=== PATIENT | male | born 1955 | race American Indian/Alaskan Native ===

== ENCOUNTER 2019-02-17 15:57 | Emergency (ER) | payer MEDICARE ==
[2019-02-17 16:53] LABS: Basophils % (Auto) 0.5 % (0.0-1.8); Eosinophils # (Auto) 0.1 K/mm3 (0.0-0.4); Eosinophils % (Auto) 1.9 % (0.0-4.3); Hematocrit 37.2 % (35.5-45.6); Hemoglobin 12.3 gm/dl (11.8-15.2); Lymphocytes # (Auto) 1.5 K/mm3 (1.2-5.4); Lymphocytes % (Auto) 23.9 % (13.4-35.0); Mean Corpuscular HGB Conc 33 % (32-34); Mean Corpuscular Volume 89 fl (84-94); Monocytes # (Auto) 0.5 K/mm3 (0.0-0.8); Monocytes % (Auto) 8.2 % (0.0-7.3); Platelet Count 213 K/mm3 (140-440); Red Blood Count 4.19 M/mm3 (3.65-5.03); Red Cell Distribution Width 13.9 % (13.2-15.2)
[2019-02-17 17:17] LABS: Albumin 3.9 g/dL (3.9-5); Calcium 8.9 mg/dL (8.4-10.2)
[2019-02-17] MEDS ORDERED: NACL 0.9% 1000 ML 1,000 ML IV ONE ×2 (17:33→19:04)
--- NOTE | 2019-02-17 17:36 | Emergency Department Report ---
HPI <CELIA MTZ III - Last Filed: 02/17/19 23:43> - HPI HPI: 63-year-old -Malagasy male presents to the emergency department from his psychiatrist's office as a 1013. The patient has a history of schizophrenia and depression. He told his psychiatrist that he is hearing voices. His family is at bedside and says that he has not been eating, drinking, taking medications for the past 1-2 weeks. Oftentimes the patient will just stare at you and not respond. He is a poor historian. He also has a past history of diabetes, ckd, hypertension, dementia. The patient's sister was able to show me some blood work showing that his last lab work from July showed a creatinine of 1.8 and a GFR of 46. <HEATHER HEWITT - Last Filed: 02/20/19 08:08> - General Chief Complaint: Psych Time Seen by Provider: 02/17/19 16:12 ED Past Medical Hx <CELIA MTZ III - Last Filed: 02/17/19 23:43> <HEATHER HEWITT Kevin - Last Filed: 02/20/19 08:08> - Medications Home Medications: Home Medications Medication Instructions Recorded Confirmed Last Taken Type amLODIPine [Norvasc] 5 tab PO QDAY 02/18/19 02/18/19 Unknown History ED Review of Systems ROS: Stated complaint: MH Other details as noted in HPI <CELIA MTZ III - Last Filed: 02/17/19 23:43> ROS: Stated complaint: MH Other details as noted in HPI Comment: Unobtainable due to pts medical conditions <HEATHER HEWITT S - Last Filed: 02/20/19 08:08> Physical Exam - Physical Exam Vital Signs: Vital Signs 02/17/19 02/17/19 17:26 19:48 Temperature 97.6 F 97.9 F Pulse Rate 92 H 95 H Respiratory 18 Rate Blood Pressure 152/72 Blood Pressure 142/73 [Right] O2 Sat by Pulse 96 95 Oximetry <CELIA MTZ III - Last Filed: 02/17/19 23:43> - Physical Exam Physical Exam: GENERAL: The patient is well-developed well-nourished. HENT: Normocephalic. Atraumatic. Patient has moist mucous membranes. EYES: Extraocular motions are intact. NECK: Supple. Trachea is midline. CHEST/LUNGS: Clear to auscultation. There is no respiratory distress noted. HEART/CARDIOVASCULAR: Regular. There is no tachycardia. There is no murmur. ABDOMEN: Abdomen is soft, nontender. Patient has normal bowel sounds. There is no abdominal distention. SKIN: Skin is warm and dry. NEURO: The patient is awake. Patient is mostly nonverbal but was heard talking and does not have any slurred speech. The patient has no focal neurologic deficits. Follows some commands. MUSCULOSKELETAL: There is no tenderness or deformity. There is no evidence of acute injury. PSYCH: Patient has a flat affect.. <HEATHER HEWITT - Last Filed: 02/20/19 08:08> ED Course Vital Signs 02/17/19 02/17/19 17:26 19:48 Temperature 97.6 F 97.9 F Pulse Rate 92 H 95 H Respiratory 18 Rate Blood Pressure 152/72 Blood Pressure 142/73 [Right] O2 Sat by Pulse 96 95 Oximetry <CELIA MTZ III - Last Filed: 02/17/19 23:43> ED Medical Decision Making - Lab Data Result diagrams: 02/17/19 16:44 02/17/19 16:44 <CELIA MTZ III - Last Filed: 02/17/19 23:43> - Lab Data Result diagrams: 02/17/19 16:44 02/17/19 16:44 - Medical Decision Making This patient presents from the psychiatrist's office for evaluation of what appears to be an exacerbation of his schizophrenia and/or depression causing him to not eat, not drinking, not take his medications and generally not take care of himself. For this reason the patient appears to meet criteria to be made a 1013. We are waiting for a urine sample for urinalysis and urine drug screen. His blood work has come back showing some renal insufficiency. The patient does have a history of chronic kidney disease with his last creatinine being 1.8 and his last GFR being about 45. Currently his creatinine is 1.9 and GFR is 36. This may represent some acute on chronic renal insufficiency but he does not have any hyperkalemia or any other electrolyte abnormalities. The patient is making urine, as he urinated on the floor, and he does not appear to need any immediate intervention such as dialysis. If the patient has a urinary tract infection, antibiotics will be started. If there is something positive on the urine drug screen, it would not change my management of this patient and he would still require psychiatric placement. Therefore, the patient appears medically cleared for psychiatric placement. - Differential Diagnosis schizophrenia, bipolar disorder, depression, schizoaffective <HEATHER HEWITT - Last Filed: 02/20/19 08:08> Critical care attestation.: If time is entered above; I have spent that time in minutes in the direct care of this critically ill patient, excluding procedure time. <ADRIANOREJINORBERTO DUGLASCELIA Rene - Last Filed: 02/17/19 23:43> Critical Care Time: No Critical care attestation.: If time is entered above; I have spent that time in minutes in the direct care of this critically ill patient, excluding procedure time. <HEATHER HEWITT - Last Filed: 02/20/19 08:08> ED Disposition Is pt being admited?: No Does the pt Need Aspirin: No Time of Disposition: 23:47 <BIBI ARDONCELIA Rene - Last Filed: 02/17/19 23:43> Is pt being admited?: No <HEATHER HEWITT - Last Filed: 02/20/19 08:08> Clinical Impression: History of schizophrenia, Decreased oral intake Depression Qualifiers: Depression Type: unspecified Qualified Code(s): F32.9 - Major depressive disorder, single episode, unspecified CKD (chronic kidney disease) Qualifiers: Chronic kidney disease stage: unspecified stage Qualified Code(s): N18.9 - Chronic kidney disease, unspecified Disposition: DC/TX-65 PSY HOSP/PSY UNIT Condition: Stable Instructions: Chronic Kidney Disease (ED), Depression (ED), Schizophrenia (ED) Additional Instructions: Patient to be discharged from the ER and 1013 rescinded so the patient can go directly to the geriatric psych floor. Upon discharge patient will be transferred directly to geropsychiatric floor. Referrals: ALFONZO LU MD [Referring] - 3-5 Days
[2019-02-18 00:04] VITALS: BP 142/75
== END 2019-02-18 00:05 ==
LOC: ED 15:57
DX: F32.9 Major depressive disorder, single episode, unspecified (principal); F20.9 Schizophrenia, unspecified; N18.9 Chronic kidney disease, unspecified; R63.0 Anorexia
CPT/HCPCS: 36415; 80053; 82962; 85025; 99284; G0480; J7030; 80320

== ENCOUNTER 2019-02-17 22:25 | Inpatient (IN) | payer MEDICARE ==
[2019-02-17] MEDS ORDERED: ATIVAN IM PRN (23:18)
[2019-02-17] MEDS ORDERED: ATIVAN PO PRN (23:20)
[2019-02-17] MEDS ORDERED: HALDOL IM PRN (23:22)
[2019-02-17] MEDS ORDERED: HALDOL PO PRN (23:25)
[2019-02-18 07:17] LABS: Basophils % (Auto) 0.7 % (0.0-1.8); Eosinophils # (Auto) 0.2 K/mm3 (0.0-0.4); Eosinophils % (Auto) 3.9 % (0.0-4.3); Hematocrit 38.7 % (35.5-45.6); Hemoglobin 13.1 gm/dl (11.8-15.2); Lymphocytes # (Auto) 2.3 K/mm3 (1.2-5.4); Lymphocytes % (Auto) 36.1 % (13.4-35.0); Mean Corpuscular HGB Conc 34 % (32-34); Mean Corpuscular Volume 89 fl (84-94); Monocytes # (Auto) 0.6 K/mm3 (0.0-0.8); Platelet Count 226 K/mm3 (140-440); Red Blood Count 4.34 M/mm3 (3.65-5.03)
[2019-02-18 07:46] LABS: Albumin 3.9 g/dL (3.9-5); Calcium 9.3 mg/dL (8.4-10.2)
[2019-02-18 08:42] LABS: Chol/HDL Ratio 4.45 %
[2019-02-18] MEDS: ABILIFY PO SCH (12:12)
[2019-02-18] MEDS: NORVASC PO SCH (16:26)
--- NOTE | 2019-02-18 17:38 | History and Physical Report ---
GP History & Physical - History of Present Illness Date of admission: 02/18/19 Date of Examination: 02/18/19 Reason for Admission: Danger to self, Impaired reality testing, Psychopathology interference, Unable to care for self Chief Complaint: I was not drinking and I was not eating. History of Present Illness: The patient is a 63-year-old single -[place] male with history of Schizophrenia, diabetes, ckd, hypertension and dementia. He was admitted to the psych unit via our ER. He presented to the emergency department from his psychiatrist's office as a 101 with c/o of hearing voices, not been eating, dri nking, taking medications for the past 1-2 weeks. Per his family, patient will just stare at you and not respond. In my interview with him, he states that he is in the hospital because he has not been eating food or drinking water. He does not know why he is not eating or drinking. He reports hearing voices but he is not able to make to make out what the voices are saying. He endorses feeling paranoid but denies SI/HI Legal Status: Voluntary Patient Problems: Current Active Problems Paranoid schizophrenia (Acute) Reaction to Hospitalization: Accepting Substance History - Substance History Drug Use: none Hx Tobacco Use: No Alcohol Use: No Past psychiatric history - Past Medical History Past Medical History: diabetes, hypertension - past Psychiatric treatment and history Psych: Depression, Schizophrenia - Social History Social history: single, lives with family (finished Grade 10 education, no legal problems, no access to guns. ) Review of Systems All systems: negative Psychiatric: hallucinations, paranoia Results - Results Labs/Vitals: Laboratory Last Values WBC 6.4 K/mm3 (4.5-11.0) 02/18/19 07:03 RBC 4.34 M/mm3 (3.65-5.03) 02/18/19 07:03 Hgb 13.1 gm/dl (11.8-15.2) 02/18/19 07:03 Hct 38.7 % (35.5-45.6) 02/18/19 07:03 MCV 89 fl (84-94) 02/18/19 07:03 MCH 30 pg (28-32) 02/18/19 07:03 MCHC 34 % (32-34) 02/18/19 07:03 RDW 14.0 % (13.2-15.2) 02/18/19 07:03 Plt Count 226 K/mm3 (140-440) 02/18/19 07:03 Lymph % (Auto) 36.1 % (13.4-35.0) H 02/18/19 07:03 [place] % (Auto) 9.0 % (0.0-7.3) H 02/18/19 07:03 Eos % (Auto) 3.9 % (0.0-4.3) 02/18/19 07:03 Baso % (Auto) 0.7 % (0.0-1.8) 02/18/19 07:03 Lymph # 2.3 K/mm3 (1.2-5.4) 02/18/19 07:03 [place] # 0.6 K/mm3 (0.0-0.8) 02/18/19 07:03 Eos # 0.2 K/mm3 (0.0-0.4) 02/18/19 07:03 Baso # 0.0 K/mm3 (0.0-0.1) 02/18/19 07:03 Seg Neutrophils % 50.3 % (40.0-70.0) 02/18/19 07:03 Seg Neutrophils # 3.2 K/mm3 (1.8-7.7) 02/18/19 07:03 Sodium 139 mmol/L (137-145) 02/18/19 07:03 Potassium 3.9 mmol/L (3.6-5.0) 02/18/19 07:03 Chloride 101.3 mmol/L (98-107) 02/18/19 07:03 Carbon Dioxide 25 mmol/L (22-30) 02/18/19 07:03 17 mmol/L 02/18/19 07:03 BUN 27 mg/dL (9-20) H 02/18/19 07:03 1.6 mg/dL (0.8-1.5) H 02/18/19 07:03 Estimated GFR 53 ml/min 02/18/19 07:03 17 % 02/18/19 07:03 Glucose 130 mg/dL (75-100) H 02/18/19 07:03 POC Glucose 142 (70-105) H 02/18/19 16:26 6.2 % (4-6) H 02/18/19 07:03 Calcium 9.3 mg/dL (8.4-10.2) 02/18/19 07:03 0.40 mg/dL (0.1-1.2) 02/18/19 07:03 AST 14 units/L (5-40) 02/18/19 07:03 ALT 12 units/L (7-56) 02/18/19 07:03 114 units/L (35-129) 02/18/19 07:03 8.1 g/dL (6.3-8.2) 02/18/19 07:03 3.9 g/dL (3.9-5) 02/18/19 07:03 0.9 % 02/18/19 07:03 Triglycerides 83 mg/dL (2-149) 02/18/19 07:03 Cholesterol 165 mg/dL (50-199) 02/18/19 07:03 114 mg/dL (50-130) 02/18/19 07:03 37 mg/dL (40-59) L 02/18/19 07:03 4.45 % 02/18/19 07:03 TSH 2.230 mlU/mL (0.270-4.200) 02/18/19 07:03 Last Vital Signs Temp 97.9 F 02/18/19 09:41 Pulse 94 H 02/18/19 16:26 Resp 16 02/18/19 09:41 BP 85/52 02/18/19 16:26 Pulse Ox 100 02/18/19 09:41 Physical Examination - Constitutional Vitals: Vital Signs Temp Pulse Resp BP Pulse Ox 97.9 F 94 H 16 85/52 100 02/18/19 09:41 02/18/19 16:26 02/18/19 09:41 02/18/19 16:26 02/18/19 09:41 Temperature -Last 24 Hours Temperature 97.9 F General appearance: Present: no acute distress, disheveled - EENT Eyes: Present: PERRL, EOM intact ENT: hearing intact, clear oral mucosa - Neck Neck: Present: supple, normal ROM - Respiratory Respiratory effort: normal Mental Status Exam - Vital signs Last Vital Signs Temp 97.9 F 02/18/19 09:41 Pulse 94 H 02/18/19 16:26 Resp 16 02/18/19 09:41 BP 85/52 02/18/19 16:26 Pulse Ox 100 02/18/19 09:41 - Exam Orientation: time, place, person Affect: flat Mood: calm Thought content: delusions, paranoia Thought Process: Intact Perceptions: auditory, hallucinations Speech: minimal response Concentration: focused Motor activity: lethargic Level of consciousness: alert Memory: Intact Interaction: cooperative Assessment and Plan - Psychiatric problem (1) Paranoid schizophrenia Current Visit: Yes Status: Acute plan to address problem: Patient will be admitted for inpatient psychiatric evaluation, medication a djustment and close monitoring The patient's behavior, mood, sleep and appetite will be closely monitored. Patient will be enrolled in individual and group therapeutic sessions and encouraged to attend. Patient will be provided with a safe and structured environment. Patient's physical health needs will be addressed by the Hospitalist. Social Assessment will be completed and the Director Of Special Events will work with patient and family to ensure a suitable and safe disposition Medication adjustment will be made as clinically indicated The patient agreed on the treatment plan, understood the risk, benefit, alternative treatment, potential consequence of no treatment, and gave informed consent. Physician Certification - Certification Statement Physician Certification Statement: This is an acknowledgement statement that RENY BRYSON JR is a 63 year old M who requires inpatient psychiatric admission for treatment which could reasonably be expected to improve the patient's condition for Schizophrenia Estimated period of time patient will need to remain in the hospital: 7 days Plan for post-hospital care: out-patient care
[2019-02-18] MEDS: ARICEPT PO SCH (21:32)
[2019-02-18] MEDS: BENADRYL PO SCH (21:32)
[2019-02-18] MEDS: REMERON PO SCH (21:32)
[2019-02-18] MEDS ORDERED: D50W (25GM) Syringe IV PRN (23:39)
[2019-02-19] MEDS: HumuLIN R SUB-Q SCH ×5 (00:55→23:42)
[2019-02-19] MEDS: NORVASC PO SCH (10:00)
[2019-02-19] MEDS: ABILIFY PO SCH (10:00)
[2019-02-19] MEDS ORDERED: D50W (25GM) Syringe IV PRN (11:14)
--- NOTE | 2019-02-19 11:16 | Consultation ---
History of Present Illness - Reason for Consult Consult date: 02/19/19 med management of DM - History of Present Illness The patient is a 63-year-old single -Italian male with history of Schizophrenia, diabetes, ckd, hypertension and dementia. He was admitted to the psych unit via our ER. He presented to the emergency department from his psychiatrist's office as a 101 with c/o of hearing voices, not been eating, drinking, taking medications for the past 1-2 weeks. Per his family, patient will just stare at you and not respond. The patient was unable to give me any history regarding his hypertension or diabetes. Patient denies any pain. Past History Past Medical History: diabetes, hypertension Social history: single, lives with family (finished Grade 10 education, no legal problems, no access to guns. ) Medications and Allergies Allergies Allergy/AdvReac Type Severity Reaction Status Date / Time No Known Allergies Allergy Unverified 02/17/19 15:58 Home Medications Medication Instructions Recorded Confirmed Last Taken Type amLODIPine [Norvasc] 5 tab PO QDAY 02/18/19 02/18/19 Unknown History Active Meds: Active Medications Amlodipine Besylate (Norvasc) 5 mg PO QDAY [facility] Last Admin: 02/19/19 10:00 Dose: 5 mg Documented by: Aripiprazole (Abilify) 15 mg PO QDAY [facility] Last Admin: 02/19/19 10:00 Dose: 15 mg Documented by: Dextrose (D50w (25gm) Syringe) 50 ml IV PRN PRN PRN Reason: Hypoglycemia Diphenhydramine HCl (Benadryl) 50 mg PO QHS [facility] Last Admin: 02/18/19 21:32 Dose: 50 mg Documented by: Donepezil HCl (Aricept) 10 mg PO QHS [facility] Last Admin: 02/18/19 21:32 Dose: 10 mg Documented by: Haloperidol (Haldol) 5 mg PO Q6H PRN PRN Reason: Agitation Haloperidol Lactate (Haldol) 5 mg IM Q6H PRN PRN Reason: Agitation Insulin Glargine (Lantus) 10 units SUB-Q QHS [facility] Insulin Human Regular (Humulin R) 0 units SUB-Q Q6HR [facility]; Protocol Last Admin: 02/19/19 07:01 Dose: Not Given Documented by: Lorazepam (Ativan) 2 mg IM Q6H PRN PRN Reason: Agitation Lorazepam (Ativan) 2 mg PO Q6H PRN PRN Reason: Agitation Mirtazapine (Remeron) 30 mg PO QHS [facility] Last Admin: 02/18/19 21:32 Dose: 30 mg Documented by: Review of Systems ROS unobtainable: due to mental status Exam - Constitutional Vitals: Temp Pulse Resp BP Pulse Ox 98.7 F 90 18 100/64 97 02/19/19 07:36 02/19/19 10:00 02/18/19 22:00 02/19/19 10:00 02/19/19 07:36 General appearance: Present: no acute distress, well-nourished - EENT Eyes: Present: PERRL ENT: hearing intact, clear oral mucosa - Neck Neck: Present: supple, normal ROM - Respiratory Respiratory effort: normal Respiratory: bilateral: CTA - Cardiovascular Heart Sounds: Present: S1 & S2. Absent: rub, click - Extremities Extremities: pulses symmetrical, No edema Peripheral Pulses: within normal limits - Abdominal General gastrointestinal: Present: soft, non-tender, non-distended, normal bowel sounds Male genitourinary: Present: normal - Integumentary Integumentary: Present: clear, warm, dry - Musculoskeletal Musculoskeletal: gait normal, strength equal bilaterally - Psychiatric Psychiatric: appropriate mood/affect, intact judgment & insight - Neurologic Neurologic: CNII-XII intact, moves all extremities Results - Labs CBC & Chem 7: 02/18/19 07:03 02/18/19 07:03 Labs: Abnormal lab results 02/18/19 02/18/19 02/18/19 Range/Units 11:21 16:26 19:37 POC Glucose 154 H 142 H 234 H (70-105) 02/19/19 02/19/19 Range/Units 06:43 07:43 POC Glucose 63 L 112 H (70-105) Assessment and Plan Schizophrenia. Per psychiatric team. Continue Abilify Diabetes mellitus type 2. Continue Accu-Cheks and changed to every before meals daily at bedtime and sliding scale insulin. CKD. We do not know baseline creatinine but appears to be stable. Hypertension. Continue antihypertensive medications--Norvasc Alzheimer's dementia. Continue Aricept. Supportive care.
--- NOTE | 2019-02-19 21:18 | Progress Note ---
Subjective Date of service: 02/19/19 Principal diagnosis: Paranoid Schizophrenia Subjective Comment: Patient is withdrawn, he reports hearing voices but he is not able to make to make out what the voices are saying. He endorses feeling paranoid but denies SI/HI. He is compliant with meds and denies side effects. Objective - Criteria for Continued Treatment Criteria for Continued Treatment: Improving Level of Functioning, Stablizing Level of Functioning, Improving Emotional/Socia - Mental Status Mental Status: Alert - Objective Observation Participation Level: Minimal Assessment and Plan - Patient Problems (1) Paranoid schizophrenia Current Visit: Yes Status: Acute Plan to address problem: Patient will be admitted for inpatient psychiatric evaluation, medication adjustment and close monitoring The patient's behavior, mood, sleep and appetite will be closely monitored. Patient will be enrolled in individual and group therapeutic sessions and encouraged to attend. Patient will be provided with a safe and structured environment. Patient's physical health needs will be addressed by the Hospitalist. Social Assessment will be completed and the Dishcloth Folder will work with patient and family to ensure a suitable and safe disposition Medication adjustment will be made as clinically indicated. Will increase Abilify to 20mg qd The patient agreed on the treatment plan, understood the risk, benefit, alternative treatment, potential consequence of no treatment, and gave informed consent.
[2019-02-19] MEDS: REMERON PO SCH (21:27)
[2019-02-19] MEDS: ARICEPT PO SCH (21:28)
[2019-02-19] MEDS: BENADRYL PO SCH (21:28)
[2019-02-19] MEDS: LANTUS SUB-Q SCH (23:26)
[2019-02-20] MEDS: HumuLIN R SUB-Q SCH ×4 (07:30→23:31)
[2019-02-20] MEDS: NORVASC PO SCH (11:00)
[2019-02-20] MEDS: ABILIFY PO SCH (11:00)
[2019-02-20] MEDS: REMERON PO SCH (21:25)
[2019-02-20] MEDS: BENADRYL PO SCH (21:25)
[2019-02-20] MEDS: ARICEPT PO SCH (21:26)
[2019-02-20] MEDS: LANTUS SUB-Q SCH (23:14)
[2019-02-21] MEDS: HumuLIN R SUB-Q SCH ×4 (10:12→22:05)
[2019-02-21] MEDS: NORVASC PO SCH (11:28)
[2019-02-21] MEDS: ABILIFY PO SCH (11:29)
--- NOTE | 2019-02-21 20:40 | Progress Note ---
Subjective Date of service: 02/20/19 Principal diagnosis: Paranoid Schizophrenia Subjective Comment: Patient is withdrawn, he continues to experience distressing auditory hallucinations. He endorses feeling paranoid but denies SI/HI. He is compliant with meds and denies side effects. Objective - Criteria for Continued Treatment Criteria for Continued Treatment: Improving Level of Functioning, Reducing Isolative Behaviors, Improving Emotional/Socia - Mental Status Mental Status: Alert - Objective Observation Participation Level: Minimal Assessment and Plan - Patient Problems (1) Paranoid schizophrenia Current Visit: Yes Status: Acute Plan to address problem: Patient will be admitted for inpatient psychiatric evaluation, medication adjustment and close monitoring The patient's behavior, mood, sleep and appetite will be closely monitored. Patient will be enrolled in individual and group therapeutic sessions and encouraged to attend. Patient will be provided with a safe and structured environment. Patient's physical health needs will be addressed by the Hospitalist. Social Assessment will be completed and the Ceramic Tiler will work with patient and family to ensure a suitable and safe disposition Medication adjustment will be made as clinically indicated. Will continue Abilify 20mg qd The patient agreed on the treatment plan, understood the risk, benefit, alternative treatment, potential consequence of no treatment, and gave informed consent.
--- NOTE | 2019-02-21 20:43 | Progress Note ---
Subjective Date of service: 02/21/19 Principal diagnosis: Paranoid Schizophrenia Subjective Comment: Patient appears depressed and withdrawn. He is not eating or drinking adequately. He has auditory hallucinations. He endorses feeling paranoid but denies SI/HI. He is compliant with meds and denies side effects. Objective - Criteria for Continued Treatment Criteria for Continued Treatment: Reducing Isolative Behaviors, Stablizing Level of Functioning, Improving Emotional/Socia - Mental Status Mental Status: Alert - Objective Observation Participation Level: Minimal Assessment and Plan - Patient Problems (1) Paranoid schizophrenia Current Visit: Yes Status: Acute Plan to address problem: Patient will be admitted for inpatient psychiatric evaluation, medication adjustment and close monitoring The patient's behavior, mood, sleep and appetite will be closely monitored. Patient will be enrolled in individual and group therapeutic sessions and encouraged to attend. Patient will be provided with a safe and structured environment. Patient's physical health needs will be addressed by the Hospitalist. Social Assessment will be completed and the Machinist Apprentice will work with patient and family to ensure a suitable and safe disposition Medication adjustment will be made as clinically indicated. Will continue Abilify 20mg qd Will add Citalopram 20mg qd for depression The patient agreed on the treatment plan, understood the risk, benefit, alternative treatment, potential consequence of no treatment, and gave informed consent.
[2019-02-21] MEDS: REMERON PO SCH (22:04)
[2019-02-21] MEDS: ARICEPT PO SCH (22:04)
[2019-02-21] MEDS: BENADRYL PO SCH (22:04)
[2019-02-21] MEDS: LANTUS SUB-Q SCH (22:30)
[2019-02-22] MEDS: HumuLIN R SUB-Q SCH ×4 (07:22→21:25)
--- NOTE | 2019-02-22 08:30 | Progress Note ---
Subjective Date of service: 02/22/19 Principal diagnosis: Paranoid Schizophrenia Subjective Comment: Patient isolates, he is sluggish, withdrawn, not eating or drinking well. He reports feeling depressed. He has auditory hallucinations. He endorses feeling paranoid but denies SI/HI. He is compliant with meds and denies side effects. Objective - Criteria for Continued Treatment Criteria for Continued Treatment: Improving Level of Functioning, Reducing Isolative Behaviors, Stablizing Level of Functioning, Improving Emotional/Socia - Mental Status Mental Status: Alert - Objective Observation Participation Level: Minimal Assessment and Plan - Patient Problems (1) Paranoid schizophrenia Current Visit: Yes Status: Acute Plan to address problem: Patient will be admitted for inpatient psychiatric evaluation, medication adjustment and close monitoring The patient's behavior, mood, sleep and appetite will be closely monitored. Patient will be enrolled in individual and group therapeutic sessions and encouraged to attend. Patient will be provided with a safe and structured environment. Patient's physical health needs will be addressed by the Hospitalist. Social Assessment will be completed and the Medical Transcription Editor will work with patient and family to ensure a suitable and safe disposition Medication adjustment will be made as clinically indicated. Will continue Abilify 20mg qd (increased 02/20) Will continue Citalopram 20mg qd for depression (started 02/21) The patient agreed on the treatment plan, understood the risk, benefit, alternative treatment, potential consequence of no treatment, and gave informed consent.
[2019-02-22] MEDS: ABILIFY PO SCH (10:15)
[2019-02-22] MEDS: NORVASC PO SCH (10:16)
[2019-02-22] MEDS: celeXA PO SCH (10:16)
[2019-02-22] MEDS: ARICEPT PO SCH (21:24)
[2019-02-22] MEDS: REMERON PO SCH (21:25)
[2019-02-22] MEDS: BENADRYL PO SCH (21:25)
[2019-02-22] MEDS: LANTUS SUB-Q SCH (21:35)
--- NOTE | 2019-02-23 08:26 | Progress Note ---
Subjective Date of service: 02/23/19 Principal diagnosis: Paranoid Schizophrenia Subjective Comment: No significant improvement. He isolates, he is sluggish and withdrawn but his appetite is improving. He endorses feeling depressed. He has auditory hallucinations. He endorses feeling paranoid but denies SI/HI. He is compliant with meds and denies side effects. Objective - Criteria for Continued Treatment Criteria for Continued Treatment: Improving Level of Functioning, Stablizing Level of Functioning, Improving Emotional/Socia - Mental Status Mental Status: Alert - Objective Observation Participation Level: Minimal Assessment and Plan - Patient Problems (1) Paranoid schizophrenia Current Visit: Yes Status: Acute Plan to address problem: Patient will be admitted for inpatient psychiatric evaluation, medication adjustment and close monitoring The patient's behavior, mood, sleep and appetite will be closely monitored. Patient will be enrolled in individual and group therapeutic sessions and encouraged to attend. Patient will be provided with a safe and structured environment. Patient's physical health needs will be addressed by the Hospitalist. Social Assessment will be completed and the Wrapper Hand will work with patient and family to ensure a suitable and safe disposition Medication adjustment will be made as clinically indicated. Will continue Abilify 20mg qd (increased 02/20) Will continue Citalopram 20mg qd for depression (started 02/21) The patient agreed on the treatment plan, understood the risk, benefit, alternative treatment, potential consequence of no treatment, and gave informed consent.
[2019-02-23] MEDS: ABILIFY PO SCH (08:59)
[2019-02-23] MEDS: celeXA PO SCH (09:06)
[2019-02-23] MEDS: NORVASC PO SCH (09:07)
[2019-02-23] MEDS: HumuLIN R SUB-Q SCH ×4 (09:09→21:45)
[2019-02-23] MEDS: REMERON PO SCH (21:45)
[2019-02-23] MEDS: ARICEPT PO SCH (21:45)
[2019-02-23] MEDS: BENADRYL PO SCH (21:45)
[2019-02-23] MEDS: LANTUS SUB-Q SCH (21:46)
[2019-02-24] MEDS: celeXA PO SCH (09:20)
[2019-02-24] MEDS: NORVASC PO SCH (09:20)
[2019-02-24] MEDS: ABILIFY PO SCH (09:20)
[2019-02-24] MEDS: HumuLIN R SUB-Q SCH ×3 (09:21→21:20)
--- NOTE | 2019-02-24 16:51 | Progress Note ---
Subjective Date of service: 02/24/19 Principal diagnosis: Paranoid Schizophrenia Subjective Comment: Patient reports slight improvement in his mood but he continues to be withdrawn, not interacting with others and very slow. Appetite is improved. He endorses feeling depressed. He has auditory hallucinations. He endorses feeling paranoid but denies SI/HI. He is compliant with meds and denies side effects. Objective - Criteria for Continued Treatment Criteria for Continued Treatment: Improving Level of Functioning, Reducing Isolative Behaviors, Stablizing Level of Functioning, Improving Emotional/Socia - Mental Status Mental Status: Alert - Objective Observation Participation Level: Minimal Assessment and Plan - Patient Problems (1) Paranoid schizophrenia Current Visit: Yes Status: Acute Plan to address problem: Patient will be admitted for inpatient psychiatric evaluation, medication adjustment and close monitoring The patient's behavior, mood, sleep and appetite will be closely monitored. Patient will be enrolled in individual and group therapeutic sessions and encouraged to attend. Patient will be provided with a safe and structured environment. Patient's physical health needs will be addressed by the Hospitalist. Social Assessment will be completed and the Pick And Shovel Worker will work with patient and family to ensure a suitable and safe disposition Medication adjustment will be made as clinically indicated. Will continue Abilify 20mg qd (increased 02/20) Will add Abilify 5mg q2pm from tomorrow Will continue Citalopram 20mg qd for depression (started 02/21) The patient agreed on the treatment plan, understood the risk, benefit, alternative treatment, potential consequence of no treatment, and gave informed consent.
[2019-02-24] MEDS: REMERON PO SCH (21:20)
[2019-02-24] MEDS: ARICEPT PO SCH (21:21)
[2019-02-24] MEDS: BENADRYL PO SCH (21:21)
[2019-02-24] MEDS: LANTUS SUB-Q SCH (22:47)
[2019-02-25] MEDS: HumuLIN R SUB-Q SCH ×5 (03:46→23:04)
[2019-02-25] MEDS: ABILIFY PO SCH ×2 (09:30→22:59)
[2019-02-25] MEDS: NORVASC PO SCH (09:30)
[2019-02-25] MEDS: celeXA PO SCH (09:30)
--- NOTE | 2019-02-25 09:43 | Progress Note ---
Subjective Date of service: 02/25/19 Principal diagnosis: Paranoid Schizophrenia Subjective Comment: Patient is making slow progress, reads the Newspaper which he usually enjoys doing and he is now attending groups. Appetite is improved. He endorses feeling depressed and still experiencing distressing auditory hallucinations. He endorses feeling paranoid but denies SI/HI. He is compliant with meds and denies side effects. Objective - Criteria for Continued Treatment Criteria for Continued Treatment: Improving Level of Functioning, Stablizing Level of Functioning, Improving Emotional/Socia - Mental Status Mental Status: Alert - Objective Observation Participation Level: Moderate Assessment and Plan - Patient Problems (1) Paranoid schizophrenia Current Visit: Yes Status: Acute Plan to address problem: Patient will be admitted for inpatient psychiatric evaluation, medication adjustment and close monitoring The patient's behavior, mood, sleep and appetite will be closely monitored. Patient will be enrolled in individual and group therapeutic sessions and encouraged to attend. Patient will be provided with a safe and structured environment. Patient's physical health needs will be addressed by the Hospitalist. Social Assessment will be completed and the Senior Care Provider will work with patient and family to ensure a suitable and safe disposition Medication adjustment will be made as clinically indicated. Will continue Abilify 20mg qd (increased 02/20) Will add Abilify 5mg q2pm from today Will continue Citalopram 20mg qd for depression (started 02/21) The patient agreed on the treatment plan, understood the risk, benefit, alternative treatment, potential consequence of no treatment, and gave informed consent.
[2019-02-25] MEDS: REMERON PO SCH (21:28)
[2019-02-25] MEDS: BENADRYL PO SCH (21:29)
[2019-02-25] MEDS: ARICEPT PO SCH (21:29)
[2019-02-25] MEDS: LANTUS SUB-Q SCH (21:30)
[2019-02-26] MEDS: HumuLIN R SUB-Q SCH ×4 (09:03→22:00)
[2019-02-26] MEDS: celeXA PO SCH (09:47)
[2019-02-26] MEDS: ABILIFY PO SCH ×2 (09:47→18:16)
[2019-02-26] MEDS: NORVASC PO SCH (09:47)
--- NOTE | 2019-02-26 13:22 | Progress Note ---
Subjective Date of service: 02/26/19 Principal diagnosis: Paranoid Schizophrenia Subjective Comment: Patient is sitting by himself in the dayroom. He is staring at the food in front of him, has not touched it for several minutes. He endorses feeling depressed and still experiencing distressing auditory hallucinations. He endorses feeling paranoid but denies SI/HI. He is compliant with meds and denies side effects. Objective - Criteria for Continued Treatment Criteria for Continued Treatment: Improving Level of Functioning, Reducing Isolative Behaviors, Stablizing Level of Functioning, Improving Emotional/Socia - Mental Status Mental Status: Alert - Objective Observation Participation Level: Minimal Assessment and Plan - Patient Problems (1) Paranoid schizophrenia Current Visit: Yes Status: Acute Plan to address problem: Patient will be admitted for inpatient psychiatric evaluation, medication adjustment and close monitoring The patient's behavior, mood, sleep and appetite will be closely monitored. Patient will be enrolled in individual and group therapeutic sessions and encouraged to attend. Patient will be provided with a safe and structured environment. Patient's physical health needs will be addressed by the Hospitalist. Social Assessment will be completed and the Denier Control Operator will work with patient and family to ensure a suitable and safe disposition Medication adjustment will be made as clinically indicated. Will continue Abilify 20mg qd (increased 02/20) Will continue Abilify 5mg q2pm (added 02/25) Will continue Citalopram 20mg qd for depression (started 02/21) The patient agreed on the treatment plan, understood the risk, benefit, alternative treatment, potential consequence of no treatment, and gave informed consent.
[2019-02-26] MEDS: LANTUS SUB-Q SCH (21:22)
[2019-02-26] MEDS: REMERON PO SCH (21:29)
[2019-02-26] MEDS: BENADRYL PO SCH (21:29)
[2019-02-26] MEDS: ARICEPT PO SCH (21:29)
--- NOTE | 2019-02-27 09:11 | Progress Note ---
Subjective Date of service: 02/27/19 Principal diagnosis: Paranoid Schizophrenia Subjective Comment: Patient endorses feeling depressed and still experiencing distressing auditory hallucinations. He endorses feeling paranoid but denies SI/HI. He is compliant with meds and denies side effects. Objective - Criteria for Continued Treatment Criteria for Continued Treatment: Improving Level of Functioning, Reducing Isolative Behaviors - Mental Status Mental Status: Alert - Objective Observation Participation Level: Full Assessment and Plan - Patient Problems (1) Paranoid schizophrenia Current Visit: Yes Status: Acute Plan to address problem: Patient will be admitted for inpatient psychiatric evaluation, medication adjustment and close monitoring The patient's behavior, mood, sleep and appetite will be closely monitored. Patient will be enrolled in individual and group therapeutic sessions and encouraged to attend. Patient will be provided with a safe and structured environment. Patient's physical health needs will be addressed by the Hospitalist. Social Assessment will be completed and the Strategy Intern will work with patient and family to ensure a suitable and safe disposition Medication adjustment will be made as clinically indicated. Will continue Abilify 20mg qd (increased 02/20) Will continue Abilify 5mg q2pm (added 02/25) Will continue Citalopram 20mg qd for depression (started 02/21) The patient agreed on the treatment plan, understood the risk, benefit, alternative treatment, potential consequence of no treatment, and gave informed consent.
[2019-02-27] MEDS: HumuLIN R SUB-Q SCH ×4 (10:07→22:00)
[2019-02-27] MEDS: celeXA PO SCH (10:08)
[2019-02-27] MEDS: NORVASC PO SCH (10:09)
[2019-02-27] MEDS: ABILIFY PO SCH ×2 (10:11→17:10)
[2019-02-27] MEDS: REMERON PO SCH (21:19)
[2019-02-27] MEDS: BENADRYL PO SCH (21:19)
[2019-02-27] MEDS: ARICEPT PO SCH (21:19)
[2019-02-27] MEDS: LANTUS SUB-Q SCH (22:57)
--- NOTE | 2019-02-28 07:43 | Progress Note ---
Subjective Date of service: 02/28/19 Principal diagnosis: Paranoid Schizophrenia Subjective Comment: Patient is severely depressed, withdrawn, not eating, very psychomotorly retarded, and continues to endorse distressing auditory hallucinations. He endorses feeling paranoid but denies SI/HI. He is compliant with meds and denies side effects. He requires a lot of prompting to perform personal hygiene. If left alone, he would not eat and would not take care of his personal hygiene. Objective - Criteria for Continued Treatment Criteria for Continued Treatment: Improving Level of Functioning, Reducing Isolative Behaviors, Stablizing Level of Functioning, Improving Emotional/Socia - Mental Status Mental Status: Alert - Objective Observation Participation Level: Minimal Assessment and Plan - Patient Problems (1) Paranoid schizophrenia Current Visit: Yes Status: Acute Plan to address problem: Patient will be admitted for inpatient psychiatric evaluation, medication adjustment and close monitoring The patient's behavior, mood, sleep and appetite will be closely monitored. Patient will be enrolled in individual and group therapeutic sessions and encouraged to attend. Patient will be provided with a safe and structured environment. Patient's physical health needs will be addressed by the Hospitalist. Social Assessment will be completed and the Tinner Automatic will work with pa tient and family to ensure a suitable and safe disposition Medication adjustment will be made as clinically indicated. Will continue Abilify 20mg qd (increased 02/20) Will continue Abilify 5mg q2pm (added 02/25) Will discontinue Citalopram and start Cymbalta 60mg qd for depression. Continue Remeron 30mg qhs (home med) The patient agreed on the treatment plan, understood the risk, benefit, alternative treatment, potential consequence of no treatment, and gave informed consent.
[2019-02-28] MEDS: HumuLIN R SUB-Q SCH ×4 (07:48→21:44)
[2019-02-28] MEDS: CYMBALTA PO SCH (10:56)
[2019-02-28] MEDS: ABILIFY PO SCH ×2 (10:57→17:07)
[2019-02-28] MEDS: NORVASC PO SCH (10:58)
[2019-02-28] MEDS: BENADRYL PO SCH (21:16)
[2019-02-28] MEDS: ARICEPT PO SCH (21:16)
[2019-02-28] MEDS: REMERON PO SCH (21:16)
[2019-02-28] MEDS: LANTUS SUB-Q SCH (21:45)
[2019-03-01] MEDS: HumuLIN R SUB-Q SCH ×4 (07:00→21:05)
[2019-03-01] MEDS: ABILIFY PO SCH ×2 (10:06→17:01)
[2019-03-01] MEDS: NORVASC PO SCH (10:07)
[2019-03-01] MEDS: CYMBALTA PO SCH (10:07)
--- NOTE | 2019-03-01 10:22 | Progress Note ---
Subjective Date of service: 03/01/19 Principal diagnosis: Paranoid Schizophrenia Subjective Comment: Patient is severely depressed, withdrawn, not eating well, refusing to shower, very psychomotorly retarded, and continues to endorse distressing auditory hallucinations. He endorses feeling paranoid but denies SI/HI. He is compliant with meds and denies side effects. He requires a lot of prompting to perform personal hygiene. If left alone, he would not eat and would not take care of his personal hygiene. Objective - Criteria for Continued Treatment Criteria for Continued Treatment: Improving Level of Functioning, Reducing Isolative Behaviors, Stablizing Level of Functioning, Improving Emotional/Socia - Mental Status Mental Status: Alert - Objective Observation Participation Level: Minimal Assessment and Plan - Patient Problems (1) Paranoid schizophrenia Current Visit: Yes Status: Acute Plan to address problem: Patient will be admitted for inpatient psychiatric evaluation, medication adjustment and close monitoring The patient's behavior, mood, sleep and appetite will be closely monitored. Patient will be enrolled in individual and group therapeutic sessions and encouraged to attend. Patient will be provided with a safe and structured environment. Patient's physical health needs will be addressed by the Hospitalist. Social Assessment will be completed and the Edge Sawyer will work with patient and family to ensure a suitable and safe disposition Medication adjustment will be made as clinically indicated. Will continue Abilify 20mg qd (increased 02/20) Will continue Abilify 5mg q2pm (added 02/25) Citalopram discontinued 02/28 Cymbalta 60mg qd for depression (02/28) Continue Remeron 30mg qhs (home med) The patient agreed on the treatment plan, understood the risk, benefit, alternative treatment, potential consequence of no treatment, and gave informed consent.
[2019-03-01] MEDS: REMERON PO SCH (21:03)
[2019-03-01] MEDS: ARICEPT PO SCH (21:04)
[2019-03-01] MEDS: BENADRYL PO SCH (21:04)
[2019-03-01] MEDS: LANTUS SUB-Q SCH (21:06)
[2019-03-02] MEDS: HumuLIN R SUB-Q SCH ×4 (08:03→21:01)
--- NOTE | 2019-03-02 08:04 | Progress Note ---
Subjective Date of service: 03/02/19 Principal diagnosis: Paranoid Schizophrenia Subjective Comment: Patient remains the same. He is severely depressed, withdrawn, not eating well, refusing to shower, very psychomotorly retarded, and continues to endorse distressing auditory hallucinations. He endorses feeling paranoid but denies SI/HI. He is compliant with meds and denies side effects. He requires a lot of prompting to perform personal hygiene. If left alone, he would not eat and would not take care of his personal hygiene. Objective - Criteria for Continued Treatment Criteria for Continued Treatment: Improving Level of Functioning, Reducing Isolative Behaviors, Stablizing Level of Functioning, Improving Emotional/Socia - Mental Status Mental Status: Alert - Objective Observation Participation Level: Minimal Assessment and Plan - Patient Problems (1) Paranoid schizophrenia Current Visit: Yes Status: Acute Plan to address problem: Patient will be admitted for inpatient psychiatric evaluation, medication adjustment and close monitoring The patient's behavior, mood, sleep and appetite will be closely monitored. Patient will be enrolled in individual and group therapeutic sessions and encouraged to attend. Patient will be provided with a safe and structured environment. Patient's physical health needs will be addressed by the Hospitalist. Social Assessment will be completed and the Interactive Video Technician will work with patient and family to ensure a suitable and safe disposition Medication adjustment will be made as clinically indicated. Will continue Abilify 20mg qd (increased 02/20) Will increase Abilify to 10mg q2pm Citalopram discontinued 02/28 Continue Cymbalta 60mg qd for depression (02/28) Continue Remeron 30mg qhs (home med) The patient agreed on the treatment plan, understood the risk, benefit, alternative treatment, potential consequence of no treatment, and gave informed consent. (2) MDD (major depressive disorder), recurrent episode, severe Current Visit: Yes Status: Acute Plan to address problem: As above
[2019-03-02] MEDS: ABILIFY PO SCH ×2 (10:33→18:40)
[2019-03-02] MEDS: NORVASC PO SCH (10:33)
[2019-03-02] MEDS: CYMBALTA PO SCH (10:33)
[2019-03-02] MEDS: REMERON PO SCH (21:00)
[2019-03-02] MEDS: ARICEPT PO SCH (21:00)
[2019-03-02] MEDS: BENADRYL PO SCH (21:00)
[2019-03-02] MEDS: LANTUS SUB-Q SCH (21:02)
[2019-03-03] MEDS: HumuLIN R SUB-Q SCH ×4 (07:31→21:23)
[2019-03-03] MEDS: ABILIFY PO SCH ×2 (09:34→17:46)
[2019-03-03] MEDS: CYMBALTA PO SCH (09:34)
[2019-03-03] MEDS: NORVASC PO SCH (09:35)
--- NOTE | 2019-03-03 13:07 | Progress Note ---
Subjective Date of service: 03/03/19 Principal diagnosis: Paranoid Schizophrenia Subjective Comment: Patient remains the same. He is severely depressed, withdrawn, very psychomotorly retarded, and continues to endorse distressing auditory hallucinations. He endorses feeling paranoid but denies SI/HI. He is compliant with meds and denies side effects. He requires a lot of prompting to perform personal hygiene. If left alone, he would not eat and would not take care of his personal hygiene. Objective - Criteria for Continued Treatment Criteria for Continued Treatment: Improving Level of Functioning, Reducing Isolative Behaviors, Stablizing Level of Functioning, Improving Emotional/Socia - Mental Status Mental Status: Alert - Objective Observation Participation Level: Minimal Assessment and Plan - Patient Problems (1) Paranoid schizophrenia Current Visit: Yes Status: Acute Plan to address problem: Patient will be admitted for inpatient psychiatric evaluation, medication adjustment and close monitoring The patient's behavior, mood, sleep and appetite will be closely monitored. Patient will be enrolled in individual and group therapeutic sessions and encouraged to attend. Patient will be provided with a safe and structured environment. Patient's physical health needs will be addressed by the Hospitalist. Social Assessment will be completed and the City Mail Carrier will work with patient and family to ensure a suitable and safe disposition Medication adjustment will be made as clinically indicated. Will continue Abilify 20mg qd (increased 02/20) Continue Abilify 10mg q2pm (increased yesterday) Citalopram discontinued 02/28 Continue Cymbalta 60mg qd for depression (02/28) Continue Remeron 30mg qhs (home med) The patient agreed on the treatment plan, understood the risk, benefit, alternative treatment, potential consequence of no treatment, and gave informed consent. (2) MDD (major depressive disorder), recurrent episode, severe Current Visit: Yes Status: Acute Plan to address problem: As above
[2019-03-03] MEDS: ARICEPT PO SCH (21:16)
[2019-03-03] MEDS: BENADRYL PO SCH (21:16)
[2019-03-03] MEDS: REMERON PO SCH (21:16)
[2019-03-03] MEDS: LANTUS SUB-Q SCH (21:17)
--- NOTE | 2019-03-04 08:50 | Progress Note ---
Subjective Date of service: 03/04/19 Principal diagnosis: Paranoid Schizophrenia Subjective Comment: Patient attended therapeutic group activities with a lot of encouragement from staff yesterday. He is more communicative. He does not initiate conversation but now responds with phrases rather that yes, no or one-word responses . He is still depressed, withdrawn, very psychomotorly retarded, and continues to endorse distressing auditory hallucinations. He endorses feeling paranoid but denies SI/HI. He is compliant with meds and denies side effects. Objective - Criteria for Continued Treatment Criteria for Continued Treatment: Improving Level of Functioning, Reducing Isolative Behaviors, Stablizing Level of Functioning - Mental Status Mental Status: Alert - Objective Observation Participation Level: Minimal Assessment and Plan - Patient Problems (1) Paranoid schizophrenia Current Visit: Yes Status: Acute Plan to address problem: Patient will be admitted for inpatient psychiatric evaluation, medication ad justment and close monitoring The patient's behavior, mood, sleep and appetite will be closely monitored. Patient will be enrolled in individual and group therapeutic sessions and encouraged to attend. Patient will be provided with a safe and structured environment. Patient's physical health needs will be addressed by the Hospitalist. Social Assessment will be completed and the Senior Clinical Data Coordinator will work with patient and family to ensure a suitable and safe disposition Medication adjustment will be made as clinically indicated. Will continue Abilify 20mg qd (increased 02/20) Continue Abilify 10mg q2pm (increased 03/02) Citalopram discontinued 02/28 Will increase Cymbalta to 90mg qd for depression (03/04) Continue Remeron 30mg qhs (home med) The patient agreed on the treatment plan, understood the risk, benefit, alternative treatment, potential consequence of no treatment, and gave informed consent. (2) MDD (major depressive disorder), recurrent episode, severe Current Visit: Yes Status: Acute Plan to address problem: As above
[2019-03-04] MEDS: HumuLIN R SUB-Q SCH ×3 (11:01→21:14)
[2019-03-04] MEDS: ABILIFY PO SCH ×2 (11:02→17:43)
[2019-03-04] MEDS: CYMBALTA PO SCH ×2 (11:04→11:05)
[2019-03-04] MEDS: NORVASC PO SCH (11:07)
[2019-03-04] MEDS: BENADRYL PO SCH (21:14)
[2019-03-04] MEDS: ARICEPT PO SCH (21:14)
[2019-03-04] MEDS: REMERON PO SCH (21:14)
[2019-03-04] MEDS: LANTUS SUB-Q SCH (21:15)
[2019-03-05] MEDS: HumuLIN R SUB-Q SCH ×4 (07:35→22:17)
--- NOTE | 2019-03-05 07:48 | Progress Note ---
Subjective Date of service: 03/05/19 Principal diagnosis: Paranoid Schizophrenia Subjective Comment: Patient is not doing well. His dietary intake is very poor. He sits motionless and stares at his foods without touching them. He reports feeling sad and depressed. He reports hearing voices which are distressing to him but unable to make out what the voices are saying. He denies SI/HI. He is compliant with meds and denies side effects. Objective - Criteria for Continued Treatment Criteria for Continued Treatment: Improving Level of Functioning, Reducing Isolative Behaviors, Stablizing Level of Functioning, Improving Emotional/Socia - Mental Status Mental Status: Alert - Objective Observation Participation Level: Minimal Assessment and Plan - Patient Problems (1) Paranoid schizophrenia Current Visit: Yes Status: Acute Plan to address problem: Patient will be admitted for inpatient psychiatric evaluation, medication adjustment and close monitoring The patient's behavior, mood, sleep and appetite will be closely monitored. Patient will be enrolled in individual and group therapeutic sessions and encouraged to attend. Patient will be provided with a safe and structured environment. Patient's physical health needs will be addressed by the Hospitalist. Social Assessment will be completed and the Solar Energy Installation Manager will work with patient and family to ensure a suitable and safe disposition Medication adjustment will be made as clinically indicated. Will continue Abilify 20mg qd (increased 02/20) Continue Abilify 10mg q2pm (increased 03/02) Citalopram discontinued 02/28 Continue Cymbalta to 90mg qd for depression (03/04) Will start Megace 800mg qd to stimulate his appetite Continue Remeron 30mg qhs (home med) The patient agreed on the treatment plan, understood the risk, benefit, alternative treatment, potential consequence of no treatment, and gave informed consent. (2) MDD (major depressive disorder), recurrent episode, severe Current Visit: Yes Status: Acute Plan to address problem: As above
[2019-03-05] MEDS: CYMBALTA PO SCH ×2 (09:11→09:14)
[2019-03-05] MEDS: ABILIFY PO SCH ×2 (09:11→17:25)
[2019-03-05] MEDS: NORVASC PO SCH (09:12)
[2019-03-05] MEDS: MEGACE PO SCH (09:14)
[2019-03-05] MEDS: BENADRYL PO SCH (21:03)
[2019-03-05] MEDS: REMERON PO SCH (21:03)
[2019-03-05] MEDS: ARICEPT PO SCH (21:03)
[2019-03-05] MEDS: LANTUS SUB-Q SCH (21:09)
--- NOTE | 2019-03-06 07:55 | Progress Note ---
Subjective Date of service: 03/06/19 Principal diagnosis: Paranoid Schizophrenia Subjective Comment: Patient is not doing well. His dietary intake is very poor. He sits motionless and stares at his foods without touching them. He reports feeling sad and depressed. He reports hearing voices which are distressing to him but unable to make out what the voices are saying. He denies SI/HI. He is compliant with meds and denies side effects. Objective - Criteria for Continued Treatment Criteria for Continued Treatment: Improving Level of Functioning, Reducing Isolative Behaviors, Stablizing Level of Functioning, Improving Emotional/Socia - Mental Status Mental Status: Alert - Objective Observation Participation Level: Minimal Assessment and Plan - Patient Problems (1) Paranoid schizophrenia Current Visit: Yes Status: Acute Plan to address problem: Patient will be admitted for inpatient psychiatric evaluation, medication adjustment and close monitoring The patient's behavior, mood, sleep and appetite will be closely monitored. Patient will be enrolled in individual and group therapeutic sessions and encouraged to attend. Patient will be provided with a safe and structured environment. Patient's physical health needs will be addressed by the Hospitalist. Social Assessment will be completed and the Time Clock Mechanic will work with patient and family to ensure a suitable and safe disposition Medication adjustment will be made as clinically indicated. Will start Wellbutrin 150mg qam for depression. Will continue Abilify 20mg qd (increased 02/20) Continue Abilify 10mg q2pm (increased 03/02) Citalopram discontinued 02/28 Continue Cymbalta 90mg qd for depression (03/04) Continue Megace 800mg qd stimulate his appetite (03/07) Continue Remeron 30mg qhs (home med) The patient agreed on the treatment plan, understood the risk, benefit, alternative treatment, potential consequence of no treatment, and gave informed consent. (2) MDD (major depressive disorder), recurrent episode, severe Current Visit: Yes Status: Acute
[2019-03-06] MEDS: HumuLIN R SUB-Q SCH ×4 (08:46→21:07)
[2019-03-06] MEDS: ABILIFY PO SCH ×2 (09:09→17:34)
[2019-03-06] MEDS: CYMBALTA PO SCH ×2 (09:09)
[2019-03-06] MEDS: NORVASC PO SCH (09:10)
[2019-03-06] MEDS: MEGACE PO SCH (09:10)
[2019-03-06] MEDS: REMERON PO SCH (21:05)
[2019-03-06] MEDS: ARICEPT PO SCH (21:05)
[2019-03-06] MEDS: BENADRYL PO SCH (21:06)
[2019-03-06] MEDS: LANTUS SUB-Q SCH (21:08)
[2019-03-07] MEDS: NORVASC PO SCH (10:56)
[2019-03-07] MEDS: MEGACE PO SCH (10:57)
[2019-03-07] MEDS: HumuLIN R SUB-Q SCH ×4 (11:03→21:30)
[2019-03-07] MEDS: CYMBALTA PO SCH ×2 (12:26→12:27)
[2019-03-07] MEDS: ABILIFY PO SCH ×2 (12:45→18:57)
[2019-03-07] MEDS: LANTUS SUB-Q SCH (21:29)
[2019-03-07] MEDS: ARICEPT PO SCH (21:30)
[2019-03-07] MEDS: BENADRYL PO SCH (21:30)
[2019-03-07] MEDS: REMERON PO SCH (21:31)
--- NOTE | 2019-03-08 08:55 | Progress Note ---
Subjective Date of service: 03/08/19 Principal diagnosis: Paranoid Schizophrenia Subjective Comment: No significant improvement. He is not doing well. His dietary intake is very poor. He sits motionless and stares at his foods without touching them. He reports feeling sad and depressed. He reports hearing voices which are distressing to him but unable to make out what the voices are saying. He denies SI/HI. He is compliant with meds and denies side effects. Objective - Criteria for Continued Treatment Criteria for Continued Treatment: Improving Level of Functioning, Reducing Isolative Behaviors, Stablizing Level of Functioning, Improving Emotional/Socia - Mental Status Mental Status: Alert - Objective Observation Participation Level: Minimal Assessment and Plan - Patient Problems (1) Paranoid schizophrenia Current Visit: Yes Status: Acute Plan to address problem: Patient will be admitted for inpatient psychiatric evaluation, medication adjustment and close monitoring The patient's behavior, mood, sleep and appetite will be closely monitored. Patient will be enrolled in individual and group therapeutic sessions and encouraged to attend. Patient will be provided with a safe and structured environment. Patient's physical health needs will be addressed by the Hospitalist. Social Assessment will be completed and the Collar Setter will work with patient and family to ensure a suitable and safe disposition Medication adjustment will be made as clinically indicated. Starting Wellbutrin 150mg qam for depression from today Will continue Abilify 20mg qd (increased 02/20) Continue Abilify 10mg q2pm (increased 03/02) Citalopram discontinued 02/28 Continue Cymbalta 90mg qd for depression (03/04) Continue Megace 800mg qd stimulate his appetite (03/07) Continue Remeron 30mg qhs (home med) The patient agreed on the treatment plan, understood the risk, benefit, alternative treatment, potential consequence of no treatment, and gave informed consent. (2) MDD (major depressive disorder), recurrent episode, severe Current Visit: Yes Status: Acute Plan to address problem: As above
[2019-03-08] MEDS: CYMBALTA PO SCH (10:20)
[2019-03-08] MEDS: MEGACE PO SCH (10:21)
[2019-03-08] MEDS: ABILIFY PO SCH ×2 (10:22→17:32)
[2019-03-08] MEDS: WELLBUTRIN XL PO SCH (10:22)
[2019-03-08] MEDS: HumuLIN R SUB-Q SCH ×4 (10:23→21:51)
[2019-03-08] MEDS: NORVASC PO SCH (10:26)
[2019-03-08] MEDS: LANTUS SUB-Q SCH (21:52)
[2019-03-08] MEDS: BENADRYL PO SCH (21:56)
[2019-03-08] MEDS: ARICEPT PO SCH (21:56)
[2019-03-08] MEDS: REMERON PO SCH (21:56)
[2019-03-09] MEDS: HumuLIN R SUB-Q SCH ×4 (08:53→21:04)
--- NOTE | 2019-03-09 09:22 | Progress Note ---
Subjective Date of service: 03/09/19 Principal diagnosis: Paranoid Schizophrenia Subjective Comment: Treatment Team met with patient's sister to discuss his progress. Her questions and concerns were addressed. Patient is not showing any significant improvement. It appears patient has been sick for a long period before his family decided to bring him to the hospital for treatment. He was started on Welbutrin yesterday plus he is on Cymbalta, Remeron and Abilify. I will consider a trial Ritalin if no improvement in his psychomotor activity which is severely slow. He is not doing well. His dietary intake is very poor. He sits motionless and stares at his foods without touching them. He reports feeling sad and depressed. He reports hearing voices which are distressing to him but unable to make out what the voices are saying. He denies SI/HI. He is compliant with meds and denies side effects. Objective - Criteria for Continued Treatment Criteria for Continued Treatment: Improving Level of Functioning - Mental Status Mental Status: Alert - Objective Observation Participation Level: Minimal Assessment and Plan - Patient Problems (1) Paranoid schizophrenia Current Visit: Yes Status: Acute Plan to address problem: Patient will be admitted for inpatient psychiatric evaluation, medication adjustment and close monitoring The patient's behavior, mood, sleep and appetite will be closely monitored. Patient will be enrolled in individual and group therapeutic sessions and encouraged to attend. Patient will be provided with a safe and structured environment. Patient's physical health needs will be addressed by the Hospitalist. Social Assessment will be completed and the Fish Salter will work with patient and family to ensure a suitable and safe disposition Medication adjustment will be made as clinically indicated. Starting Wellbutrin 150mg qam for depression from today Will continue Abilify 20mg qd (increased 02/20) Continue Abilify 10mg q2pm (increased 03/02) Citalopram discontinued 02/28 Continue Cymbalta 90mg qd for depression (03/04) Continue Megace 800mg qd stimulate his appetite (03/07) Continue Remeron 30mg qhs (home med) The patient agreed on the treatment plan, understood the risk, benefit, alternative treatment, potential consequence of no treatment, and gave informed consent. (2) MDD (major depressive disorder), recurrent episode, severe Current Visit: Yes Status: Acute
[2019-03-09] MEDS: MEGACE PO SCH (10:10)
[2019-03-09] MEDS: CYMBALTA PO SCH (10:10)
[2019-03-09] MEDS: WELLBUTRIN XL PO SCH (10:10)
[2019-03-09] MEDS: ABILIFY PO SCH ×2 (10:12→18:40)
[2019-03-09] MEDS: NORVASC PO SCH (10:13)
[2019-03-09] MEDS: ARICEPT PO SCH (21:03)
[2019-03-09] MEDS: BENADRYL PO SCH (21:04)
[2019-03-09] MEDS: REMERON PO SCH (21:04)
[2019-03-09] MEDS: LANTUS SUB-Q SCH (21:05)
[2019-03-10] MEDS: HumuLIN R SUB-Q SCH ×4 (07:43→21:50)
--- NOTE | 2019-03-10 09:28 | Progress Note ---
Subjective Date of service: 03/10/19 Principal diagnosis: Paranoid Schizophrenia Subjective Comment: Patient is eating better. His voice is louder and clearer. He is very inactive. He reports feeling sad and depressed. He reports hearing voices which are distressing to him but unable to make out what the voices are saying. He denies SI/HI. He is compliant with meds and denies side effects. Objective - Criteria for Continued Treatment Criteria for Continued Treatment: Improving Level of Functioning, Reducing Isolative Behaviors, Stablizing Level of Functioning, Improving Emotional/Socia - Mental Status Mental Status: Alert - Objective Observation Participation Level: Minimal Assessment and Plan - Patient Problems (1) Paranoid schizophrenia Current Visit: Yes Status: Acute Plan to address problem: Patient will be admitted for inpatient psychiatric evaluation, medication adjustment and close monitoring The patient's behavior, mood, sleep and appetite will be closely monitored. Patient will be enrolled in individual and group therapeutic sessions and encouraged to attend. Patient will be provided with a safe and structured environment. Patient's physical health needs will be addressed by the Hospitalist. Social Assessment will be completed and the Fitting Room Associate will work with patient and family to ensure a suitable and safe disposition Medication adjustment will be made as clinically indicated. Continue Wellbutrin 150mg qam for depression (03/10) Will continue Abilify 20mg qd (increased 02/20) Continue Abilify 10mg q2pm (increased 03/02) Citalopram discontinued 02/28 Continue Cymbalta 90mg qd for depression (03/04) Continue Megace 800mg qd stimulate his appetite (03/07) Continue Remeron 30mg qhs (home med) The patient agreed on the treatment plan, understood the risk, benefit, alternative treatment, potential consequence of no treatment, and gave informed consent. (2) MDD (major depressive disorder), recurrent episode, severe Current Visit: Yes Status: Acute
[2019-03-10] MEDS: CYMBALTA PO SCH (09:31)
[2019-03-10] MEDS: NORVASC PO SCH (09:31)
[2019-03-10] MEDS: WELLBUTRIN XL PO SCH (09:31)
[2019-03-10] MEDS: MEGACE PO SCH (09:32)
[2019-03-10] MEDS: ABILIFY PO SCH ×2 (09:32→17:41)
[2019-03-10] MEDS: LANTUS SUB-Q SCH (21:53)
[2019-03-10] MEDS: ARICEPT PO SCH (21:54)
[2019-03-10] MEDS: REMERON PO SCH (21:54)
[2019-03-10] MEDS: BENADRYL PO SCH (21:56)
[2019-03-11] MEDS: HumuLIN R SUB-Q SCH ×4 (11:00→21:43)
[2019-03-11] MEDS: ABILIFY PO SCH ×2 (11:03→17:51)
[2019-03-11] MEDS: CYMBALTA PO SCH (11:03)
[2019-03-11] MEDS: MEGACE PO SCH (11:04)
[2019-03-11] MEDS: WELLBUTRIN XL PO SCH (11:05)
[2019-03-11] MEDS: NORVASC PO SCH (11:09)
--- NOTE | 2019-03-11 15:28 | Progress Note ---
Subjective Date of service: 03/11/19 Principal diagnosis: Paranoid Schizophrenia Subjective Comment: No new complaints. Appetite is improving. His voice is louder and clearer. He is very inactive. He reports feeling sad and depressed. He reports hearing voices which are distressing to him but unable to make out what the voices are saying. He denies SI/HI. He is compliant with meds and denies side effects. Objective - Criteria for Continued Treatment Criteria for Continued Treatment: Improving Level of Functioning, Reducing Isolative Behaviors, Stablizing Level of Functioning, Improving Emotional/Socia - Mental Status Mental Status: Alert - Objective Observation Participation Level: Minimal Assessment and Plan - Patient Problems (1) Paranoid schizophrenia Current Visit: Yes Status: Acute Plan to address problem: Patient will be admitted for inpatient psychiatric evaluation, medication adjustment and close monitoring The patient's behavior, mood, sleep and appetite will be closely monitored. Patient will be enrolled in individual and group therapeutic sessions and encouraged to attend. Patient will be provided with a safe and structured environment. Patient's physical health needs will be addressed by the Hospitalist. Social Assessment will be completed and the Pier Hand Helper will work with patient and family to ensure a suitable and safe disposition Medication adjustment will be made as clinically indicated. Continue Wellbutrin 150mg qam for depression (03/10) Will continue Abilify 20mg qd (increased 02/20) Continue Abilify 10mg q2pm (increased 03/02) Citalopram discontinued 02/28 Continue Cymbalta 90mg qd for depression (03/04) Continue Megace 800mg qd stimulate his appetite (03/07) Continue Remeron 30mg qhs (home med) The patient agreed on the treatment plan, understood the risk, benefit, alternative treatment, potential consequence of no treatment, and gave informed consent. (2) MDD (major depressive disorder), recurrent episode, severe Current Visit: Yes Status: Acute Plan to address problem: As above
[2019-03-11] MEDS: REMERON PO SCH (21:38)
[2019-03-11] MEDS: BENADRYL PO SCH (21:38)
[2019-03-11] MEDS: ARICEPT PO SCH (21:39)
[2019-03-11] MEDS: LANTUS SUB-Q SCH (21:39)
[2019-03-12] MEDS: WELLBUTRIN XL PO SCH (09:34)
[2019-03-12] MEDS: ABILIFY PO SCH ×2 (09:34→17:01)
[2019-03-12] MEDS: CYMBALTA PO SCH (09:35)
[2019-03-12] MEDS: MEGACE PO SCH (09:36)
[2019-03-12] MEDS: NORVASC PO SCH (09:37)
[2019-03-12] MEDS: HumuLIN R SUB-Q SCH ×4 (10:50→21:01)
[2019-03-12] MEDS: REMERON PO SCH (21:00)
[2019-03-12] MEDS: ARICEPT PO SCH (21:00)
[2019-03-12] MEDS: BENADRYL PO SCH (21:00)
[2019-03-12] MEDS: LANTUS SUB-Q SCH (21:01)
[2019-03-13] MEDS: HumuLIN R SUB-Q SCH ×4 (08:58→21:08)
[2019-03-13] MEDS: ABILIFY PO SCH ×2 (09:24→17:45)
[2019-03-13] MEDS: CYMBALTA PO SCH (09:25)
[2019-03-13] MEDS: MEGACE PO SCH (09:25)
[2019-03-13] MEDS: NORVASC PO SCH (09:25)
[2019-03-13] MEDS: WELLBUTRIN XL PO SCH (09:26)
[2019-03-13] MEDS: ARICEPT PO SCH (21:07)
[2019-03-13] MEDS: REMERON PO SCH (21:07)
[2019-03-13] MEDS: BENADRYL PO SCH (21:08)
[2019-03-13] MEDS: LANTUS SUB-Q SCH (22:53)
[2019-03-14] MEDS: HumuLIN R SUB-Q SCH ×4 (08:22→21:22)
[2019-03-14] MEDS: ABILIFY PO SCH ×2 (09:13→17:42)
[2019-03-14] MEDS: MEGACE PO SCH (09:13)
[2019-03-14] MEDS: NORVASC PO SCH (09:14)
[2019-03-14] MEDS: WELLBUTRIN XL PO SCH (09:15)
[2019-03-14] MEDS: CYMBALTA PO SCH (09:15)
--- NOTE | 2019-03-14 10:54 | Progress Note ---
Subjective Date of service: 03/12/19 Principal diagnosis: Paranoid Schizophrenia Subjective Comment: No new complaints. Appetite is improving. His voice is louder and clearer. He is still inactive but reports feeling ok. He reports hearing voices which. He denies SI/HI. He is compliant with meds and denies side effects. Objective - Criteria for Continued Treatment Criteria for Continued Treatment: Improving Level of Functioning, Reducing Isolative Behaviors, Stablizing Level of Functioning, Improving Emotional/Socia, Decreasing Frequency of Hospitalization - Mental Status Mental Status: Alert - Objective Observation Participation Level: Minimal Assessment and Plan - Patient Problems (1) Paranoid schizophrenia Current Visit: Yes Status: Acute Plan to address problem: Patient will be admitted for inpatient psychiatric evaluation, medication adjustment and close monitoring The patient's behavior, mood, sleep and appetite will be closely monitored. Patient will be enrolled in individual and group therapeutic sessions and encouraged to attend. Patient will be provided with a safe and structured environment. Patient's physical health needs will be addressed by the Hospitalist. Social Assessment will be completed and the Dial Printer will work with patient and family to ensure a suitable and safe disposition Medication adjustment will be made as clinically indicated. Continue Wellbutrin 150mg qam for depression (03/10) Will continue Abilify 20mg qd (increased 02/20) Continue Abilify 10mg q2pm (increased 03/02) Citalopram discontinued 02/28 Continue Cymbalta 90mg qd for depression (03/04) Continue Megace 800mg qd stimulate his appetite (03/07) Continue Remeron 30mg qhs (home med) The patient agreed on the treatment plan, understood the risk, benefit, alternative treatment, potential consequence of no treatment, and gave informed consent. (2) MDD (major depressive disorder), recurrent episode, severe Current Visit: Yes Status: Acute Plan to address problem: As above
--- NOTE | 2019-03-14 11:06 | Progress Note ---
Subjective Date of service: 03/14/19 Principal diagnosis: Paranoid Schizophrenia Subjective Comment: No new complaints. Patient is improving. He is able to engage in conversation with staffs. Appetite is good. He still hears voices but unable to make out what they are saying. He denies paranoia/SI/HI. He is compliant with meds and denies side effects. Objective - Criteria for Continued Treatment Criteria for Continued Treatment: Stablizing Level of Functioning - Mental Status Mental Status: Alert - Objective Observation Participation Level: Moderate Assessment and Plan - Patient Problems (1) Paranoid schizophrenia Current Visit: Yes Status: Acute Plan to address problem: Patient will be admitted for inpatient psychiatric evaluation, medication adjustment and close monitoring The patient's behavior, mood, sleep and appetite will be closely monitored. Patient will be enrolled in individual and group therapeutic sessions and encouraged to attend. Patient will be provided with a safe and structured environment. Patient's physical health needs will be addressed by the Hospitalist. Social Assessment will be completed and the International Trade Manager will work with patient and family to ensure a suitable and safe disposition Medication adjustment will be made as clinically indicated. Continue Wellbutrin 150mg qam for depression (03/10) Will continue Abilify 20mg qd (increased 02/20) Continue Abilify 10mg q2pm (increased 03/02) Citalopram discontinued 02/28 Continue Cymbalta 90mg qd for depression (03/04) Continue Megace 800mg qd stimulate his appetite (03/07) Continue Remeron 30mg qhs (home med) Will discharge home in am if he continues to do well The patient agreed on the treatment plan, understood the risk, benefit, alternative treatment, potential consequence of no treatment, and gave informed consent. (2) MDD (major depressive disorder), recurrent episode, severe Current Visit: Yes Status: Acute Plan to address problem: As above
[2019-03-14] MEDS: LANTUS SUB-Q SCH (21:12)
[2019-03-14] MEDS: ARICEPT PO SCH (21:23)
[2019-03-14] MEDS: BENADRYL PO SCH (21:23)
[2019-03-14] MEDS: REMERON PO SCH (21:23)
[2019-03-15] MEDS: HumuLIN R SUB-Q SCH ×2 (08:08→12:55)
[2019-03-15] MEDS: MEGACE PO SCH (10:04)
[2019-03-15] MEDS: CYMBALTA PO SCH (10:04)
[2019-03-15] MEDS: ABILIFY PO SCH (10:07)
[2019-03-15] MEDS: WELLBUTRIN XL PO SCH (10:07)
--- NOTE | 2019-03-15 11:13 | Discharge Summary ---
Providers - Providers Date of Admission: 02/18/19 00:22 Date of discharge: 03/15/19 Attending physician: GOLDIE HARRISON MD 02/17/19 22:51 Consult to Physician [CONS] Routine Comment: Consulting Provider: SOO CLAY Physician Instructions: HISTORY AND PHYSICAL Reason For Exam: H&P 02/18/19 01:48 Consult to Dietitian/Nutrition [CONS] Routine Physician Instructions: Reason For Exam: Reason for Consult: Poor oral intake 02/18/19 23:39 Consult to Dietitian/Nutrition [CONS] Routine Physician Instructions: Reason For Exam: Reason for Consult: Diet education Primary care physician: MIGUEL TAYLOR Hospitalization Reason for admission: hearing voices, not been eating, drinking, taking medications. Condition: Stable Hospital course: The patient was provided inpatient psychiatric treatment with safe and supportive environment, group therapy, individual counseling, psychiatric medication, medication adjustment, adverse effect monitor, medical evaluation, medical treatment, social service assessment, family/social support meeting, placement assessment and psycho-education. The patients mood, anxiety, thoughts, stress management skill, cognition, impulse/anger control, motivation, understanding of disease, compliance to treatment and appreciation on family/social support are improved and stabilized. At the time of discharge, the patient had no suicidal ideas, no homicidal ideas, no aggressive thoughts, no endangering behavior and no debilitating adverse effects. The patient agreed on the treatment plan, understood the risk, benefit, alternative treatment, potential consequence of no treatment, and gave informed consent. The patient was advised to be compliant with medications, not to use drugs and not to drink alcohol. The patient understands that if suicidal ideas, homicidal ideas, or any endangering thoughts arise, the patient should immediately seek for emergent assistance including but not limited to crisis hot line and emergency room. Follow up with out-patient Psychiatrist and PCP within 14 - 21 days of discharge. Disposition: - TO HOME OR SELFCARE Allergies/Adverse Reactions: Allergies No Known Allergies Allergy (Unverified 02/17/19 15:58) Vital Signs: Last Vital Signs Temp 98.9 F 03/14/19 08:54 Pulse 96 H 03/14/19 19:32 Resp 16 03/14/19 08:54 BP 106/70 03/14/19 19:32 Pulse Ox 100 03/14/19 19:32 Last Lab: Laboratory Last Values WBC 6.4 K/mm3 (4.5-11.0) 02/18/19 07:03 RBC 4.34 M/mm3 (3.65-5.03) 02/18/19 07:03 Hgb 13.1 gm/dl (11.8-15.2) 02/18/19 07:03 Hct 38.7 % (35.5-45.6) 02/18/19 07:03 MCV 89 fl (84-94) 02/18/19 07:03 MCH 30 pg (28-32) 02/18/19 07:03 MCHC 34 % (32-34) 02/18/19 07:03 RDW 14.0 % (13.2-15.2) 02/18/19 07:03 Plt Count 226 K/mm3 (140-440) 02/18/19 07:03 Lymph % (Auto) 36.1 % (13.4-35.0) H 02/18/19 07:03 [place] % (Auto) 9.0 % (0.0-7.3) H 02/18/19 07:03 Eos % (Auto) 3.9 % (0.0-4.3) 02/18/19 07:03 Baso % (Auto) 0.7 % (0.0-1.8) 02/18/19 07:03 Lymph # 2.3 K/mm3 (1.2-5.4) 02/18/19 07:03 [place] # 0.6 K/mm3 (0.0-0.8) 02/18/19 07:03 Eos # 0.2 K/mm3 (0.0-0.4) 02/18/19 07:03 Baso # 0.0 K/mm3 (0.0-0.1) 02/18/19 07:03 Seg Neutrophils % 50.3 % (40.0-70.0) 02/18/19 07:03 Seg Neutrophils # 3.2 K/mm3 (1.8-7.7) 02/18/19 07:03 Sodium 139 mmol/L (137-145) 02/18/19 07:03 Potassium 3.9 mmol/L (3.6-5.0) 02/18/19 07:03 Chloride 101.3 mmol/L (98-107) 02/18/19 07:03 Carbon Dioxide 25 mmol/L (22-30) 02/18/19 07:03 17 mmol/L 02/18/19 07:03 BUN 27 mg/dL (9-20) H 02/18/19 07:03 1.6 mg/dL (0.8-1.5) H 02/18/19 07:03 Estimated GFR 53 ml/min 02/18/19 07:03 17 % 02/18/19 07:03 Glucose 130 mg/dL (75-100) H 02/18/19 07:03 POC Glucose 112 (70-105) H 03/15/19 06:25 6.2 % (4-6) H 02/18/19 07:03 Calcium 9.3 mg/dL (8.4-10.2) 02/18/19 07:03 0.40 mg/dL (0.1-1.2) 02/18/19 07:03 AST 14 units/L (5-40) 02/18/19 07:03 ALT 12 units/L (7-56) 02/18/19 07:03 114 units/L (35-129) 02/18/19 07:03 8.1 g/dL (6.3-8.2) 02/18/19 07:03 3.9 g/dL (3.9-5) 02/18/19 07:03 0.9 % 02/18/19 07:03 Triglycerides 83 mg/dL (2-149) 02/18/19 07:03 Cholesterol 165 mg/dL (50-199) 02/18/19 07:03 114 mg/dL (50-130) 02/18/19 07:03 37 mg/dL (40-59) L 02/18/19 07:03 4.45 % 02/18/19 07:03 TSH 2.230 mlU/mL (0.270-4.200) 02/18/19 07:03 - Discharge Diagnoses (1) Paranoid schizophrenia Status: Acute (2) MDD (major depressive disorder), recurrent episode, severe Status: Acute Core Measure Documentation - Palliative Care Palliative Care/ Comfort Measures: Not Applicable - Core Measures Any of the following diagnoses?: none - VTE Discharge Requirements Deep Vein Thrombosis/Pulmonary Embolism Present on Admission: No Has pt received <5 days of overlap therapy or INR<2.0: No Anticoagulant overlap therapy prescribed at discharge: No Contraindication No Overlap Therapy order at DC: Not Indicated Exam - Constitutional Vitals: Temp Pulse Resp BP Pulse Ox 98.9 F 96 H 16 106/70 100 03/14/19 08:54 03/14/19 19:32 03/14/19 08:54 03/14/19 19:32 03/14/19 19:32 General appearance: Present: no acute distress - EENT Eyes: Present: PERRL, EOM intact ENT: hearing intact, clear oral mucosa - Neck Neck: Present: supple, normal ROM - Respiratory Respiratory effort: normal Plan Activity: advance as tolerated Weight Bearing Status: Weight Bear as Tolerated Follow up with: MIGUEL TAYLOR MD [Primary Care Provider] - 7 Days Prescriptions: Donepezil [Aricept] 10 mg PO QHS #30 tablet Mirtazapine [Remeron 15mg TAB] 30 mg PO QHS #60 tablet ARIPiprazole [Abilify TAB] 10 mg PO QPM #30 tablet ARIPiprazole [Abilify TAB] 20 mg PO QDAY #30 tablet DULoxetine [Cymbalta] 90 mg PO QDAY #120 capsule Megestrol [Megace] 800 mg PO QDAY #2 oral.liqd buPROPion XL [Wellbutrin XL] 150 mg PO QDAY #30 tablet
[2019-03-15] MEDS: NORVASC PO SCH (13:07)
[2019-03-15 13:08] VITALS: BP 106/72
== END 2019-03-15 16:45 | disposition home or self-care (01) | DRG 885 ==
LOC: UNDOADMIN 22:25 → 3A 22:25 → 5A 02-18 00:22
PROVIDERS: ADMIT Psychiatry & Neurology Psychiatry; ATTEND Psychiatry & Neurology Psychiatry
DX: F20.0 Paranoid schizophrenia (principal); F33.2 Major depressive disorder, recurrent severe without psychotic features; E11.22 Type 2 diabetes mellitus with diabetic chronic kidney disease; I12.9 Hypertensive chronic kidney disease with stage 1 through stage 4 chronic kidney disease, or unspecified chronic kidney disease; G30.9 Alzheimer's disease, unspecified; F02.80 Dementia in other diseases classified elsewhere, unspecified severity, without behavioral disturbance, psychotic disturbance, mood disturbance, and anxiety; Z79.899 Other long term (current) drug therapy; Z79.84 Long term (current) use of oral hypoglycemic drugs
CPT/HCPCS: 36415; 80048; 80053; 80061; 80320; 82962; 83036; 84443; 85025; G0378; G0480; J1815; J7030